=== PATIENT | female | born 1945 | race Caucasian/White ===

== ENCOUNTER 2018-05-01 06:19 | Observation (INO) | payer OTHER, BC ==
[2018-05-01 07:11] VITALS: TEMP 97.7; BMI 42.9
--- NOTE | 2018-05-01 08:30 | PDOC ---
History of Present Illness - General Chief Complaint: Rectal Bleed Stated Complaint: BLOOD IN STOOL Time Seen by Provider: 05/01/18 07:34 History Source: Patient Exam Limitations: No Limitations - History of Present Illness Initial Comments: 05/01/18 08:14 72 yo female pmh of HTN, HLD (no AC, on 81 ASA daily) hemorrhoids, last colonoscopy [address] Bucio showed diverticulosis, benign polyps along with internal/external hemorrhoids, chronic back pain (intermittently takes Advil) presents to the ED after 1 episode of BRBPR this am. Pt states she woke up at 4 am due to lower quadrant abdominal cramping, believed it was gas, attempted to pass gas but states a large amount of BRB came out while on the toilet. Pt became lightheaded and nauseated without vomiting after episode, denies abdominal pain during bowel movement, denies straining while on the toilet. Pt admits to only 1 episode of blood filling the toilet without formed stools. Denies similar episodes in the past, F/C/ vomiting, abdominal pain, Cp, SOB Past History - Past Medical History Allergies/Adverse Reactions: Allergies Allergy/AdvReac Type Severity Reaction Status Date / Time Penicillins Allergy Severe Itching Verified 05/01/18 07:06 Home Medications: Ambulatory Orders Aspirin Coated [Ecotrin -] 81 mg PO DAILY 03/13/15 Atorvastatin Calcium 10 mg PO Q2D 03/13/15 Cholecalciferol (Vitamin D3) [Vitamin D3] 2,000 unit PO DAILY 03/13/15 Glucosam/Chondroit/C/Manganese [Cosamin Ds Capsule] 1 each PO DAILY 03/13/15 Candesartan/Hydrochlorothiazid [Candesartan-Hctz 32-25 mg Tab] 1 each PO DAILY 05/02/18 Loratadine [Claritin] 10 mg PO DAILY 05/02/18 Metoprolol Succinate [Toprol Xl] 50 mg PO DAILY 05/02/18 Vitamin E 400 unit PO DAILY 05/02/18 COPD: No GI Disorders: Yes (DIVERTICULOSIS, COLON POLYPS) HTN: Yes Hypercholesterolemia: Yes Liver Disease: Yes (NAFLD) - Suicide/Smoking/Psychosocial Hx Smoking History: Former smoker Have you smoked in the past 12 months: No If you are a former smoker, when did you quit?: 40 YEARS AGO Information on smoking cessation initiated: No Hx Alcohol Use: No Drug/Substance Use Hx: No Substance Use Type: None Hx Substance Use Treatment: No Review of Systems - Review of Systems Constitutional: No: Chills, Fever Respiratory: No: Shortness of Breath Cardiac (ROS): No: Chest Pain ABD/GI: Yes: Nausea (resolved). No: Constipated, Diarrhea, Vomiting : No: Burning, Dysuria, Discharge, Frequency, Flank Pain Musculoskeletal: No: Back Pain Integumentary: No: Change in Color Neurological: Yes: Other (lightheaded resolved). No: Headache, Numbness, Weakness, Ataxia, Dizziness *Physical Exam - Vital Signs Last Vital Signs Temp Pulse Resp BP Pulse Ox 97.7 F 83 20 129/70 97 05/01/18 07:06 05/01/18 07:06 05/01/18 07:06 05/01/18 07:06 05/01/18 07:06 - Physical Exam General Appearance: Yes: Nourished, Appropriately Dressed. No: Apparent Distress HEENT: positive: EOMI. negative: Pale Conjunctivae Neck: positive: Supple. negative: Carotid bruit Respiratory/Chest: positive: Lungs Clear, Normal Breath Sounds. negative: Accessory Muscle Use Cardiovascular: positive: Regular Rhythm, Regular Rate, S1, S2. negative: Edema , JVD, Murmur Vascular Pulses: Dorsalis-Pedis (R): 4+, Doralis-Pedis (L): 4+ Gastrointestinal/Abdominal: positive: Normal Bowel Sounds, Flat, Soft. negative : Pulsatile Mass, Protuberent, Distended, Guarding, Rebound, Tenderness Rectal Exam: positive: normal rectal tone, heme positive stool, hemorrhoids, other (visualized BRB around anus). negative: melena Musculoskeletal: negative: CVA Tenderness Extremity: positive: Normal Capillary Refill, Normal Inspection Integumentary: positive: Normal Color, Dry, Warm Neurologic: positive: Fully Oriented, Alert, Normal Mood/Affect, Normal Response , Motor Strength 5/5 ED Treatment Course - LABORATORY CBC & Chemistry Diagram: 05/02/18 05:40 05/02/18 05:25 Medical Decision Making - Medical Decision Making 72 yo female pmh of HTN, HLD (no AC, on 81 ASA daily) hemorrhoids, last colonoscopy [address] Kozicky showed diverticulosis, benign polyps along with internal/external hemorrhoids, chronic back pain (intermittently takes Advil) presents to the ED after 1 episode of BRBPR this am. Pt states she woke up at 4 am due to lower quadrant abdominal cramping, believed it was gas, attempted to pass gas but states a large amount of BRB came out while on the toilet. Pt became lightheaded and nauseated without vomiting after episode, denies abdominal pain during bowel movement, denies straining while on the toilet. Pt admits to only 1 episode of blood filling the toilet without formed stools. Denies similar episodes in the past, F/C/ vomiting, abdominal pain, Cp, SOB Vitals WNL AOX3 NAD non toxic appearing DDX INLT: Diverticular bleed, colon ca, angiodysplasia, bleeding hemorrhoid Rectal shows residual BRB around the anus, external and internal hemorrhoids that are not actively bleeding and a positive stool occult Abdomen is non tender CBC shows normal h/h with elevated WBC CMP WNL trops neg EKG NSR without ST elevations or depressions GI consulted and pt will be admitted for repeat CBCs and r/o diverticular bleed Pt continues to be asymptomatic in the ED, has not had another bowel movement Pt accepted for admission *DC/Admit/Observation/Transfer Diagnosis at time of Disposition: Lower GI bleed - Discharge Dispostion Disposition: HOME Condition at time of disposition: Fair Decision to Admit order: Yes - Referrals - Patient Instructions - Post Discharge Activity
[2018-05-01] MEDS ORDERED: SODIUM CHLORIDE 500 ML IV ONE (08:37)
[2018-05-01 08:48] LABS: BASO % 0.6 % (0-2.0); EOS % 0.2 % (0-4.5); HEMATOCRIT 37.8 % (32.4-45.2); HEMOGLOBIN 13.1 GM/dL (10.7-15.3); LYMPH % 15.1 % (8-40); MCH 32.6 pg (25.7-33.7); MCHC 34.7 g/dl (32.0-36.0); MEAN CELL VOLUME 93.9 fl (80-96); MEAN PLT VOLUME 9.3 fl (7.5-11.1); MONO % 3.7 % (3.8-10.2); NEUT % 80.4 % (42.8-82.8); PLATELET COUNT 282 K/MM3 (134-434); RBC 4.02 M/mm3 (3.60-5.2); RDW 13.7 % (11.6-15.6); WHITE BLOOD COUNT 16.5 K/mm3 (4.0-10.0)
[2018-05-01 09:15] LABS: INR 1.08 (0.83-1.09); PROTHROMBIN TIME (PATIENT) 12.8 SEC (9.7-13.0)
[2018-05-01 09:18] LABS: ACTIVATED PTT 29.9 SECONDS (25.2-36.5); ALBUMIN 3.6 g/dl (3.4-5.0); ALK PHOS 62 U/L (45-117); ANION GAP 9 MMOL/L (8-16); BILIRUBIN,TOTAL 0.6 mg/dL (0.2-1); BLOOD UREA NITROGEN 19 mg/dL (7-18); CALCIUM 8.5 mg/dL (8.5-10.1); CHLORIDE 103 mmol/L (98-107); CO2 27 mmol/L (21-32); CREATININE 0.9 mg/dL (0.55-1.3); GLUCOSE,RANDOM 130 mg/dL (74-106); POTASSIUM 3.8 mmol/L (3.5-5.1); SGOT/AST 16 U/L (15-37); SGPT/ALT 27 U/L (13-61); SODIUM 139 mmol/L (136-145); TOT PROT 6.8 g/dl (6.4-8.2)
--- NOTE | 2018-05-01 10:10 | PDOC ---
Attending Attestation - Resident Resident Name: Cruzito Florez - ED Attending Attestation I have performed the following: I have examined & evaluated the patient, The case was reviewed & discussed with the resident, I agree w/resident's findings & plan - HPI HPI: 05/01/18 10:08 72-year-old female with history of diverticulosis on colonoscopy in 2016 presents with 1 large bloody bowel movement this morning. Patient was in her usual state of normal health, developed abdominal cramping followed by large loose bowel movement with gross blood, developed lightheadedness and nausea following the episode without actual syncope. No chest pain. No history of GI bleed. Takes daily aspirin, no other blood thinners. Feels well now, no abdominal pain. - Physicial Exam PE: 05/01/18 10:09 Vital signs normal Well-appearing seated in chair No jaundice or pallor Heart is regular without murmur, lungs are clear Abdomen is soft/nontender/nondistended. Guaiac positive. Neurologically intact, well-perfused distally - Medical Decision Making 05/01/18 10:09 72-year-old female with known diverticulosis presents with painless bright red blood per rectum this morning and near syncope. Presentation most consistent with diverticular bleed, hemodynamically stable here with benign abdominal exam. Labs are within normal limits, hemoglobin 13 Troponin negative, EKG without acute ischemic changes Will monitor for recurring GI bleed, trending her CBC Heart Score/ECG Review #1 ECG reviewed & interpreted by me at: 08:44 General ECG Interpretation: Sinus Rhythm, Normal Rate (89), Normal Intervals ( qtc 455), No acute ischemic changes
[2018-05-01] MEDS ORDERED: DEXTROSE 5%-NORMAL SALINE 1,000 ML IV SCH (11:15)
--- NOTE | 2018-05-01 11:26 | HP ---
CHIEF COMPLAINT: rectal bleed PCP: Dr. Carter HISTORY OF PRESENT ILLNESS: This is a 72 year old female with a history of diverticulosis, colon polyps ( removed 3years ago), HTN, HLD, osteoarthritis, external and internal hemorrhoids , who presents this Am after one episode of BRBPR. Patient states she went to the bathroom , had diarrhea, and say toilet bowl full of blood. After episode she became hot and sweaty. She denies LOC, cp, son, fever, chills, n, v, . ER: stool for occult blood +; vital and H/H stable Recent Travel: no PAST MEDICAL HISTORY: as above PAST Sx ;no Social History: Smoking:no Alcohol:no Drugs: no Family History: Allergies Penicillins Allergy (Severe, Verified 05/01/18 07:06) Itching /RASH HOME MEDICATIONS: Home Medications Medication Instructions Recorded Aspirin Coated [Ecotrin -] 81 mg PO DAILY 03/13/15 Atorvastatin Calcium 10 mg PO Q2D 03/13/15 Candesartan/Hydrochlorothiazid 1 each PO DAILY 03/13/15 [Candesartan-Hctz 16-12.5 mg Tb] Cholecalciferol (Vitamin D3) 2,000 unit PO ASDIR 03/13/15 [Vitamin D3] Glucosam/Chondroit/C/Manganese 1 each PO DAILY 03/13/15 [Cosamin Ds Capsule] REVIEW OF SYSTEMS CONSTITUTIONAL: Absent: fever, chills, diaphoresis, generalized weakness, malaise, loss of appetite, weight change HEENT: Absent: rhinorrhea, nasal congestion, throat pain, throat swelling, difficulty swallowing, mouth swelling, ear pain, eye pain, visual changes CARDIOVASCULAR: Absent: chest pain, syncope, palpitations, irregular heart rate, lightheadedness , peripheral edema RESPIRATORY: Absent: cough, shortness of breath, dyspnea with exertion, orthopnea, wheezing, stridor, hemoptysis GASTROINTESTINAL: Positive: BRBPR; diarrhea Absent: abdominal pain, abdominal distension, nausea, vomiting, constipation, melena, GENITOURINARY: Absent: dysuria, frequency, urgency, hesitancy, hematuria, flank pain, genital pain MUSCULOSKELETAL: Absent: myalgia, arthralgia, joint swelling, back pain, neck pain SKIN: Absent: rash, itching, pallor HEMATOLOGIC/IMMUNOLOGIC: Absent: easy bleeding, easy bruising, lymphadenopathy, frequent infections ENDOCRINE: Absent: unexplained weight gain, unexplained weight loss, heat intolerance, cold intolerance NEUROLOGIC: Absent: headache, focal weakness or paresthesias, dizziness, unsteady gait, seizure, mental status changes, bladder or bowel incontinence PSYCHIATRIC: Absent: anxiety, depression, suicidal or homicidal ideation, hallucinations. PHYSICAL EXAMINATION Vital Signs - 24 hr 05/01/18 05/01/18 07:06 07:11 Temperature 97.7 F Pulse Rate 83 Respiratory 20 20 Rate Blood Pressure 129/70 O2 Sat by Pulse 97 97 Oximetry (%) GENERAL: Awake, alert, and fully oriented, in no acute distress. HEAD: Normal with no signs of trauma. EYES: Pupils equal, round and reactive to light, extraocular movements intact, sclera anicteric, conjunctiva clear. No lid lag. EARS, NOSE, THROAT: Ears normal, nares patent, oropharynx clear without exudates. Moist mucous membranes. NECK: Normal range of motion, supple without lymphadenopathy, JVD, or masses. Breast: no masses; lumps LUNGS: Breath sounds equal, clear to auscultation bilaterally. No wheezes, and no crackles. No accessory muscle use. HEART: Regular rate and rhythm, normal S1 and S2, +systolic aortic stenosis murmur extending to right clavicle, rub or gallop. ABDOMEN: tight , + distended, decreased bowel sounds, no guarding, no rebound, no masses. No hepatomegaly or splenomegaly. MUSCULOSKELETAL: Normal range of motion at all joints. No bony deformities or tenderness. No CVA tenderness. UPPER EXTREMITIES: 2+ pulses, warm, well-perfused. No cyanosis. No clubbing. No peripheral edema. LOWER EXTREMITIES: 2+ pulses, warm, well-perfused. No calf tenderness. No peripheral edema. NEUROLOGICAL: Cranial nerves II-XII intact. Normal speech. Normal gait. PSYCHIATRIC: Cooperative. Good eye contact. Appropriate mood and affect. SKIN: Warm, dry, normal turgor, no rashes or lesions noted, normal capillary refill. Rectal: no active bleeding; +large external hemorrhoids; decline internal exam due to already done by ER resident Laboratory Results - last 24 hr 05/01/18 05/01/18 05/01/18 08:10 08:23 08:23 WBC 16.5 H RBC 4.02 Hgb 13.1 Hct 37.8 MCV 93.9 MCH 32.6 MCHC 34.7 RDW 13.7 Plt Count 282 MPV 9.3 Absolute Neuts (auto) 13.3 H Neutrophils % 80.4 Lymphocytes % 15.1 Monocytes % 3.7 L Eosinophils % 0.2 Basophils % 0.6 Nucleated RBC % 0 PT with INR 12.80 INR 1.08 PTT (Actin FS) 29.9 Sodium Potassium Chloride Carbon Dioxide Anion Gap BUN Creatinine Creat Clearance w eGFR Random Glucose Calcium Total Bilirubin AST ALT Alkaline Phosphatase Creatine Kinase Troponin I Total Protein Albumin Stool Occult Blood Positive Blood Type Antibody Screen 05/01/18 05/01/18 08:23 08:23 WBC RBC Hgb Hct MCV MCH MCHC RDW Plt Count MPV Absolute Neuts (auto) Neutrophils % Lymphocytes % Monocytes % Eosinophils % Basophils % Nucleated RBC % PT with INR INR PTT (Actin FS) Sodium 139 Potassium 3.8 Chloride 103 Carbon Dioxide 27 Anion Gap 9 BUN 19 H Creatinine 0.9 Creat Clearance w eGFR 61.55 Random Glucose 130 H Calcium 8.5 Total Bilirubin 0.6 AST 16 ALT 27 Alkaline Phosphatase 62 Creatine Kinase 58 Troponin I < 0.02 Total Protein 6.8 Albumin 3.6 Stool Occult Blood Blood Type AB POSITIVE Antibody Screen Negative Current Medications Generic Name Dose Route Start Last Admin Trade Name Freq PRN Reason Stop Dose Admin Atorvastatin Calcium 10 mg 05/03/18 22:00 Lipitor - PO Q2D@2200 TERESA Hydrochlorothiazide 12.5 mg 05/02/18 10:00 Hctz - PO DAILY TERESA Dextrose/Sodium Chloride 1,000 mls @ 83 mls/hr 05/01/18 11:15 05/01/18 11:20 D5-Ns - IV 05/01/18 23:18 83 mls/hr ASDIR TERESA Administration Valsartan 160 mg 05/02/18 10:00 Diovan - PO DAILY TERESA ASSESSMENT/PLAN: This is a 72 year old obese female with a history of colon polyps, diverticulosis, hTN, HLD, arthritis, who presents after one episode of diarrhea with BRBPR. #BRBPR with one episode of diarrhea: most likely bleeding from hemorrhoids; r/o diverticulitis bleed; diverticulitis -IVF ; NS 83mls/ x1 bag -H/H stable monitor; -protonix -CT abdomen and pelvis #leucocytosis: possible secondary to acute viral gastroenteritis, vs diverticulitis. -monitor cbc -monitor off antibiotics -abd/pelvis pending #HTN: controlled -cont diovan/htc #HLD: -statin q48hs as per home dose Diet : npo for now VTE ppl: scds GI ppl: protonix Disposition med surg obs Visit type - Emergency Visit Emergency Visit: Yes ED Registration Date: 05/01/18 Care time: The patient presented to the Emergency Department on the above date and was hospitalized for further evaluation of their emergent condition. - New Patient This patient is new to me today: Yes Date on this admission: 05/01/18 - Critical Care Critical Care patient: No
--- NOTE | 2018-05-01 16:59 | PN ---
Teaching Attending Note Name of Resident: Luciana Rivas ATTENDING PHYSICIAN STATEMENT I saw and evaluated the patient. I reviewed the resident's note and discussed the case with the resident. I agree with the resident's findings and plan as documented. CC: I had bleeding HPI: Ms Lloyd is a very pleasant 72 year old female who comes in with rectal bleeding. She says she has history of hemorrhoids and often sees blood when she has a bowel movement but normally it is on the toilet paper. However today she had diarrhea and noted that the toilet bowl was full of blood. She continued to sit there and as she was having further bowel movements, she became nauseous. She says she blew her nose and the nausea resolved. She says she has now stopped bleeding but came in for further evaluation. She denies fevers, chills, lightheadedness, dizziness, passing out, chest pain or pressures, shortness of breath, vomiting, difficulty or pain on urination, or swelling. Currently she says she feels fine. PMHx: HTN PSHx: none All: penicillin Meds: Home Medications Medication Instructions Recorded Aspirin Coated [Ecotrin -] 81 mg PO DAILY 03/13/15 Atorvastatin Calcium 10 mg PO Q2D 03/13/15 Candesartan/Hydrochlorothiazid 1 each PO DAILY 03/13/15 [Candesartan-Hctz 16-12.5 mg Tb] Cholecalciferol (Vitamin D3) 2,000 unit PO ASDIR 03/13/15 [Vitamin D3] Glucosam/Chondroit/C/Manganese 1 each PO DAILY 03/13/15 [Cosamin Ds Capsule] SHx: denies tobacco, alcohol, [employer] FHx: patient says all her family is alive and healthy ROS: full review of systems obtained, as per HPI and otherwise negative OBJECTIVE: Last Vital Signs Temp Pulse Resp BP Pulse Ox 36.5 C 83 20 129/70 97 05/01/18 07:06 05/01/18 07:06 05/01/18 07:11 05/01/18 07:06 05/01/18 07:11 Gen: nad, obese HEENT: perrla, eomi, mmm Pulm: ctab w/o w/r/r CV: rrr w/o m/r/g Abd: +bs, s/nt/nd Ext: no c/c/e CBC, BMP 05/01/18 08:23 05/01/18 08:23 ASSESSMENT AND PLAN: -admit under observation -suspect hemorrhoidal bleed -sees Dr Bucio in the outpatient, will consult -follow up CT A/P -cbc tonight and again in the am -gentle hydration -continue home regimen -if no further bleeding, plan for discharge in am -leukocytosis noted and will monitor but hold on antibiotics as no other signs of infection/sepsis at this time Problem List - Problems (1) HTN (hypertension) Code(s): I10 - ESSENTIAL (PRIMARY) HYPERTENSION (2) Lower GI bleed Code(s): K92.2 - GASTROINTESTINAL HEMORRHAGE, UNSPECIFIED
--- NOTE | 2018-05-01 17:05 | CON.GI ---
Consult Consult Specialty:: Gastroenterology Referred by:: Dr Muñoz Reason for Consultation:: Rectal bleeding - History of Present Illness Chief Complaint: Awoke with rectal bleeding History of Present Illness: 72F awake at 4AM with the urge to defecate and instead of passing gas expelled a large volume of various shades of blood, some bright red. She did have transient lower colicky pain but that rapidly subsided after the blood passed. She did feel nauseated and near syncopal. She has not had a BM since then. She does admit to being somewhat constipated over the past few days but has not had recent bleeding. She last had a colonoscopy with me on 03/16/15 when a serrated polyp was removed from the transverse colon. An inflammatory polyp was removed from the right colon and a hyperplastic polyp from the descending colon. Mild left colon diverticulosis was noted. She had small internal hemorrhoids and large external hemorrhoids. - History Source History Provided By: Patient Limitations to Obtaining History: No Limitations - Past Medical History Cardio/Vascular: Yes: HTN, Hyperlipdemia Gastrointestinal: Yes: Diverticulosis, Other (Colon polyps inbcludeing sessile serrated adenoma ') Hepatobiliary: Yes: Other (fatty liver) Renal/: Yes: Renal Calculi Additional Medical History: morbid obesity - Past Surgical History Past Surgical History: Yes: Colonoscopy Additional Surgical History: colposcopy. excision fatty tumor from the leg - Alcohol/Substance Use Hx Alcohol Use: Yes (occasional wine) History of Substance Use: reports: None - Smoking History Smoking history: Former smoker Have you smoked in the past 12 months: No If you are a former smoker, when did you quit?: 1978 - Social History Usual Living Arrangement: Alone () ADL: Independent Occupation: retired teacher Place of : [facility] Home Medications - Allergies Allergies/Adverse Reactions: Allergies Allergy/AdvReac Type Severity Reaction Status Date / Time Penicillins Allergy Severe Itching Verified 05/01/18 07:06 - Home Medications Home Medications: Ambulatory Orders Aspirin Coated [Ecotrin -] 81 mg PO DAILY 03/13/15 Atorvastatin Calcium 10 mg PO Q2D 03/13/15 Candesartan/Hydrochlorothiazid [Candesartan-Hctz 16-12.5 mg Tb] 1 each PO DAILY 03/13/15 Cholecalciferol (Vitamin D3) [Vitamin D3] 2,000 unit PO ASDIR 03/13/15 Glucosam/Chondroit/C/Manganese [Cosamin Ds Capsule] 1 each PO DAILY 03/13/15 Family Disease History - Family Disease History Family Disease History: Diabetes: Father, Other: Mother (CVA) Other Family History: cousin with pancreatic cancer, cousin with colon polyp Review of Systems - Review of Systems Constitutional: reports: Diaphoresis, Weakness Eyes: reports: No Symptoms HENT: reports: No Symptoms Neck: reports: No Symptoms Cardiovascular: reports: No Symptoms Respiratory: reports: No Symptoms Gastrointestinal: reports: Abdominal Pain, Constipation, Rectal Bleeding Physical Exam-GI Vital Signs: Vital Signs Temperature 97.7 F 05/01/18 07:06 Pulse Rate 83 05/01/18 07:06 Respiratory Rate 20 05/01/18 07:11 Blood Pressure 129/70 05/01/18 07:06 O2 Sat by Pulse Oximetry (%) 97 05/01/18 07:11 CBC,CMP WBC 16.5 K/mm3 (4.0-10.0) H 05/01/18 08:23 RBC 4.02 M/mm3 (3.60-5.2) 05/01/18 08:23 Hgb 13.1 GM/dL (10.7-15.3) 05/01/18 08:23 Hct 37.8 % (32.4-45.2) 05/01/18 08:23 MCV 93.9 fl (80-96) 05/01/18 08:23 MCH 32.6 pg (25.7-33.7) 05/01/18 08:23 MCHC 34.7 g/dl (32.0-36.0) 05/01/18 08:23 RDW 13.7 % (11.6-15.6) 05/01/18 08:23 Plt Count 282 K/MM3 (134-434) 05/01/18 08:23 MPV 9.3 fl (7.5-11.1) 05/01/18 08:23 Absolute Neuts (auto) 13.3 K/mm3 (1.5-8.0) H 05/01/18 08:23 Neutrophils % 80.4 % (42.8-82.8) 05/01/18 08:23 Lymphocytes % 15.1 % (8-40) 05/01/18 08:23 Monocytes % 3.7 % (3.8-10.2) L 05/01/18 08:23 Eosinophils % 0.2 % (0-4.5) 05/01/18 08:23 Basophils % 0.6 % (0-2.0) 05/01/18 08:23 Nucleated RBC % 0 % (0-0) 05/01/18 08:23 Sodium 139 mmol/L (136-145) 05/01/18 08:23 Potassium 3.8 mmol/L (3.5-5.1) 05/01/18 08:23 Chloride 103 mmol/L (98-107) 05/01/18 08:23 Carbon Dioxide 27 mmol/L (21-32) 05/01/18 08:23 Anion Gap 9 MMOL/L (8-16) 05/01/18 08:23 BUN 19 mg/dL (7-18) H 05/01/18 08:23 Creatinine 0.9 mg/dL (0.55-1.3) 05/01/18 08:23 Creat Clearance w eGFR 61.55 (>60) 05/01/18 08:23 Random Glucose 130 mg/dL (74-106) H 05/01/18 08:23 Calcium 8.5 mg/dL (8.5-10.1) 05/01/18 08:23 Total Bilirubin 0.6 mg/dL (0.2-1) 05/01/18 08:23 AST 16 U/L (15-37) 05/01/18 08:23 ALT 27 U/L (13-61) 05/01/18 08:23 Alkaline Phosphatase 62 U/L (45-117) 05/01/18 08:23 Creatine Kinase 58 U/L (26-192) 05/01/18 08:23 Troponin I < 0.02 ng/ml (0.00-0.05) 05/01/18 08:23 Total Protein 6.8 g/dl (6.4-8.2) 05/01/18 08:23 Albumin 3.6 g/dl (3.4-5.0) 05/01/18 08:23 Current Medications Generic Name Dose Route Start Last Admin Trade Name Freq PRN Reason Stop Dose Admin Atorvastatin Calcium 10 mg 05/03/18 22:00 Lipitor - PO Q2D@2200 TERESA Hydrochlorothiazide 12.5 mg 05/02/18 10:00 Hctz - PO DAILY TERESA Dextrose/Sodium Chloride 1,000 mls @ 83 mls/hr 05/01/18 11:15 05/01/18 11:20 D5-Ns - IV 05/01/18 23:18 83 mls/hr ASDIR TERESA Administration Valsartan 160 mg 05/02/18 10:00 Diovan - PO DAILY TERESA Constitutional: Yes: No Distress, Calm Eyes: Yes: Conjunctiva Clear HENT: Yes: Atraumatic Neck: Yes: Supple Cardiovascular: Yes: Regular Rate and Rhythm Respiratory: Yes: CTA Bilaterally Gastrointestinal Inspection: Yes: WNL, Distention, Other (obese) ...Auscultate: Yes: Normoactive Bowel Sounds ...Palpate: Yes: Soft, Other (nontender) ...Percussion: Yes: Tympanitic ...Rectal Exam: Yes: Guaiac Positive (no rectal mass, hemorrhoids are friable , smal amount of fresh blood present confirmed by guaiac), Hemorrhoids/External ( large extrenal hemorrhoids), Sphincter Tone Normal Labs: CBC, BMP 05/01/18 08:23 05/01/18 08:23 INR, PTT INR 1.08 (0.83-1.09) 05/01/18 08:23 Problem List - Problems (1) External bleeding hemorrhoids Assessment/Plan: The lack of subsequent bleeding and stable Hb strongly suggest a hemorrhoidal bleed but I agree with the need for observation to exclude bleeding from diverticulosis, angiodysplasias and ischemic colitis among others. If bleeding subsides can discharge with followup in the office. If it persists will undertake colonoscopy now. Code(s): K64.4 - RESIDUAL HEMORRHOIDAL SKIN TAGS (2) Serrated adenoma of colon Assessment/Plan: Given the serrated adenoma I have informed Shama that she is due for a repeat surveillance colonoscopy which can be done as an outpatient if the bleeding subsides Code(s): D12.6 - BENIGN NEOPLASM OF COLON, UNSPECIFIED (3) Diverticulosis Code(s): K57.90 - DVRTCLOS OF INTEST, PART UNSP, W/O PERF OR ABSCESS W/O BLEED (4) Colon polyps Code(s): K63.5 - POLYP OF COLON (5) Morbid (severe) obesity due to excess calories Code(s): E66.01 - MORBID (SEVERE) OBESITY DUE TO EXCESS CALORIES (6) Hyperlipidemia Code(s): E78.5 - HYPERLIPIDEMIA, UNSPECIFIED (7) Nephrolithiasis Code(s): N20.0 - CALCULUS OF KIDNEY (8) Lower GI bleed Code(s): K92.2 - GASTROINTESTINAL HEMORRHAGE, UNSPECIFIED Assessment/Plan Impression: The lack of subsequent bleeding and stable Hb strongly suggest a hemorrhoidal bleed but I agree with the need for observation to exclude bleeding from diverticulosis, angiodysplasias and ischemic colitis among others. History of serrated adenoma NAFLD Diverticulosis Morbid obesity Plan: Observe for rebleeding. Repeat CBC if this ensues If bleeding subsides can discharge with followup in the office. If it persists will undertake colonoscopy now. I have informed Shama that she is due for a repeat surveillance colonoscopy which can be done as an outpatient if the bleeding subsides Will get Fibroscan when she follows up in the office.
--- NOTE | 2018-05-01 22:01 | EKG ---
Test Reason : Blood Pressure : / mmHG Vent. Rate : 089 BPM Atrial Rate : 089 BPM P-R Int : 176 ms QRS Dur : 084 ms QT Int : 374 ms P-R-T Axes : 035 -27 -01 degrees QTc Int : 455 ms NORMAL SINUS RHYTHM NONSPECIFIC ST ABNORMALITY ABNORMAL ECG WHEN COMPARED WITH ECG OF 22-DEC-2008 08:52, INVERTED T WAVES HAVE REPLACED NONSPECIFIC T WAVE ABNORMALITY IN INFERIOR LEADS Confirmed by MD EVON, IRMA ([id number]) on 05/01/2018 10:00:30 PM Referred By: Confirmed By:IRMA BARNARD MD
[2018-05-02 05:49] LABS: BASO % 1.4 % (0-2.0); EOS % 1.1 % (0-4.5); HEMATOCRIT 31.3 % (32.4-45.2); LYMPH % 27.9 % (8-40); MCH 32.5 pg (25.7-33.7); MCHC 35.3 g/dl (32.0-36.0); MEAN CELL VOLUME 92.1 fl (80-96); MEAN PLT VOLUME 8.8 fl (7.5-11.1); MONO % 7.5 % (3.8-10.2); NEUT % 62.1 % (42.8-82.8); PLATELET COUNT 201 K/MM3 (134-434); RBC 3.39 M/mm3 (3.60-5.2); RDW 13.6 % (11.6-15.6); WHITE BLOOD COUNT 11.5 K/mm3 (4.0-10.0)
[2018-05-02 06:04] LABS: INR 1.16 (0.83-1.09); PROTHROMBIN TIME (PATIENT) 13.7 SEC (9.7-13.0)
[2018-05-02 06:06] LABS: ACTIVATED PTT 27.4 SECONDS (25.2-36.5)
[2018-05-02 06:12] LABS: ANION GAP 6 MMOL/L (8-16); BLOOD UREA NITROGEN 18 mg/dL (7-18); CALCIUM 8.4 mg/dL (8.5-10.1); CHLORIDE 106 mmol/L (98-107); CO2 27 mmol/L (21-32); CREATININE 0.7 mg/dL (0.55-1.3); GLUCOSE,RANDOM 115 mg/dL (74-106); PHOSPHOROUS 2.9 mg/dL (2.5-4.9); POTASSIUM 3.5 mmol/L (3.5-5.1); SODIUM 139 mmol/L (136-145)
[2018-05-02] MEDS ORDERED: VALSARTAN 160 MG TABLET (UD) PO SCH (10:00)
[2018-05-02] MEDS ORDERED: PATIENT'S OWN MEDICATION (NON-FORMULARY) (Candesartan/Hydrochlorothiazid [Candesartan-Hctz PO SCH (10:00)
[2018-05-02] MEDS ORDERED: HYDROCHLOROTHIAZIDE 12.5 MG CAPSULE (FP) PO SCH (10:00)
[2018-05-02 11:00] VITALS: BP 141/70; PULSE 93
--- NOTE | 2018-05-02 11:05 | DS ---
Physical Exam: SUBJECTIVE: Patient seen and examined; no complaints; no episodes of bleeding. CT negative OBJECTIVE: Vital Signs Period Temp Pulse Resp BP Sys/Padilla Pulse Ox Last 24 Hr 97.7 F-97.7 F 93-121 18-20 103-146/66-117 95 PHYSICAL EXAM GENERAL: The patient is awake, alert, and fully oriented, in no acute distress. LUNGS: Breath sounds equal, clear to auscultation bilaterally, no wheezes, no crackles, no accessory muscle use. HEART: Regular rate and rhythm, S1, S2 without murmur, rub or gallop. ABDOMEN: Soft, nontender, nondistended, normoactive bowel sounds, no guarding, no rebound, no hepatosplenomegaly, no masses. EXTREMITIES: 2+ pulses, warm, well-perfused, no edema. NEUROLOGICAL: Cranial nerves II through XII grossly intact. Normal speech, gait not observed. LABS Laboratory Results - last 24 hr 05/02/18 05/02/18 05/02/18 05:25 05:25 05:40 WBC 11.5 H RBC 3.39 L Hgb 11.0 Hct 31.3 L D MCV 92.1 MCH 32.5 MCHC 35.3 RDW 13.6 Plt Count 201 D MPV 8.8 Absolute Neuts (auto) 7.1 Neutrophils % 62.1 D Lymphocytes % 27.9 D Monocytes % 7.5 D Eosinophils % 1.1 D Basophils % 1.4 Nucleated RBC % 0 Retic Count PT with INR INR PTT (Actin FS) Sodium 139 Potassium 3.5 Chloride 106 Carbon Dioxide 27 Anion Gap 6 L BUN 18 Creatinine 0.7 Creat Clearance w eGFR 82.25 Random Glucose 115 H Calcium 8.4 L Phosphorus 2.9 Magnesium 2.0 Ferritin 39.0 05/02/18 05/02/18 05:40 05:40 WBC RBC Hgb Hct MCV MCH MCHC RDW Plt Count MPV Absolute Neuts (auto) Neutrophils % Lymphocytes % Monocytes % Eosinophils % Basophils % Nucleated RBC % Retic Count 2.65 H PT with INR 13.70 H INR 1.16 H PTT (Actin FS) 27.4 Sodium Potassium Chloride Carbon Dioxide Anion Gap BUN Creatinine Creat Clearance w eGFR Random Glucose Calcium Phosphorus Magnesium Ferritin HOSPITAL COURSE: Date of Admission:05/01/18 Date of Discharge: 05/02/18 This is a 72 year old female with a history of diverticulosis, colon polyps ( removed 3years ago), HTN, HLD, osteoarthritis, external and internal hemorrhoids , who presents after one episode of BRBPR. She was observed in hospital for bleeding and monitor cbc. NO bleeding while here, cbc stable. CT abdomen negative for acute pathology. Bleeding was secondary to external and internal hemorrhoids. She was evaluated by gastroenterology and will follow up with DR. Bucio as an outpatient. Minutes to complete discharge: 35 Discharge Summary Reason For Visit: LOWER GI HEMORRHAGE Current Active Problems Colon polyps (Acute) Diverticulosis (Acute) External bleeding hemorrhoids (Acute) HTN (hypertension) (Acute) Hyperlipidemia (Acute) Lower GI bleed (Acute) Morbid (severe) obesity due to excess calories (Acute) Nephrolithiasis (Acute) Serrated adenoma of colon (Acute) Condition: Fair - Instructions Diet, Activity, Other Instructions: Ms. Lloyd, you have been evaluated for an episode of blood in your stool. This was most likely due to your hemorrhoids. Your abdominal CT was negative. Please maintain a well balanced diet with fruit and vegetables and fiber. Regular exercise is recommended. Keep your bowel movements regular as hemorrhoids have a tendency to bleed easily. Please follow up with your enrollment clerk for screening colonoscopies and hemorroids. If you experience any worsening of symptoms including overt blood loss, lightheadedness, chest pain, shortness of breath, please return to to the emergency room. Referrals: Lola Bucio MD [Staff Physician] - Disposition: HOME - Home Medications Comprehensive Discharge Medication List: Ambulatory Orders Aspirin Coated [Ecotrin -] 81 mg PO DAILY 03/13/15 Atorvastatin Calcium 10 mg PO Q2D 03/13/15 Cholecalciferol (Vitamin D3) [Vitamin D3] 2,000 unit PO DAILY 03/13/15 Glucosam/Chondroit/C/Manganese [Cosamin Ds Capsule] 1 each PO DAILY 03/13/15 Candesartan/Hydrochlorothiazid [Candesartan-Hctz 32-25 mg Tab] 1 each PO DAILY 05/02/18 Loratadine [Claritin] 10 mg PO DAILY 05/02/18 Metoprolol Succinate [Toprol Xl] 50 mg PO DAILY 05/02/18 Vitamin E 400 unit PO DAILY 05/02/18 This patient is new to me today: Yes Date on this admission: 05/02/18 Emergency Visit: Yes ED Registration Date: 05/01/18 Care time: The patient presented to the Emergency Department on the above date and was hospitalized for further evaluation of their emergent condition. Critical Care patient: No - Discharge Referral Referred to [facility] No
--- NOTE | 2018-05-02 11:12 | PN ---
Teaching Attending Note Name of Resident: Luciana Rivas ATTENDING PHYSICIAN STATEMENT I saw and evaluated the patient. I reviewed the resident's note and discussed the case with the resident. I agree with the resident's findings and plan as documented with exceptions below. SUBJECTIVE: Patient seen and examined, no further bleeding. No abdominal pain, tolerating diet well. Eager to go home. OBJECTIVE: Vital Signs Period Temp Pulse Resp BP Sys/Padilla Pulse Ox Last 24 Hr 97.7 F-97.7 F 93-121 18-20 103-146/66-117 95 Intake & Output 04/29/18 04/30/18 05/01/18 05/02/18 23:59 23:59 23:59 23:59 Weight 250 lb General: sitting in bed in no acute distress Chest: CTAB, no rales or wheezing Abdomen: soft, Obese, NT throughout, positive bowel sounds Extremities: no edema Home Medications Medication Instructions Recorded Aspirin Coated [Ecotrin -] 81 mg PO DAILY 03/13/15 Atorvastatin Calcium 10 mg PO Q2D 03/13/15 Cholecalciferol (Vitamin D3) 2,000 unit PO DAILY 03/13/15 [Vitamin D3] Glucosam/Chondroit/C/Manganese 1 each PO DAILY 03/13/15 [Cosamin Ds Capsule] Candesartan/Hydrochlorothiazid 1 each PO DAILY 05/02/18 [Candesartan-Hctz 32-25 mg Tab] Loratadine [Claritin] 10 mg PO DAILY 05/02/18 Metoprolol Succinate [Toprol Xl] 50 mg PO DAILY 05/02/18 Vitamin E 400 unit PO DAILY 05/02/18 Laboratory Results - last 24 hr 05/02/18 05/02/18 05/02/18 05:25 05:25 05:40 WBC 11.5 H RBC 3.39 L Hgb 11.0 Hct 31.3 L D MCV 92.1 MCH 32.5 MCHC 35.3 RDW 13.6 Plt Count 201 D MPV 8.8 Absolute Neuts (auto) 7.1 Neutrophils % 62.1 D Lymphocytes % 27.9 D Monocytes % 7.5 D Eosinophils % 1.1 D Basophils % 1.4 Nucleated RBC % 0 Retic Count PT with INR INR PTT (Actin FS) Sodium 139 Potassium 3.5 Chloride 106 Carbon Dioxide 27 Anion Gap 6 L BUN 18 Creatinine 0.7 Creat Clearance w eGFR 82.25 Random Glucose 115 H Calcium 8.4 L Phosphorus 2.9 Magnesium 2.0 Ferritin 39.0 05/02/18 05/02/18 05:40 05:40 WBC RBC Hgb Hct MCV MCH MCHC RDW Plt Count MPV Absolute Neuts (auto) Neutrophils % Lymphocytes % Monocytes % Eosinophils % Basophils % Nucleated RBC % Retic Count 2.65 H PT with INR 13.70 H INR 1.16 H PTT (Actin FS) 27.4 Sodium Potassium Chloride Carbon Dioxide Anion Gap BUN Creatinine Creat Clearance w eGFR Random Glucose Calcium Phosphorus Magnesium Ferritin ASSESSMENT AND PLAN: 72 yof with PMHx of diverticulosis, colon polyps (removed 3years ago), HTN, HLD , osteoarthritis, external and internal hemorrhoids admitted with hematochezia. -Acute lower gastrointestinal haemorrhage, suspect haemorrhoidal bleed -HTN -Diverticulosis -Colonic polyps -HLD -Osteoarthritis Plan: no further evidence of bleed. CT A/P non concerning. Tolerating diet, hemodynamcis stable. D/c home today with outpatient CBC monitoring and GI follow up. Plan discussed with patient in detail, all questions answered.
[2018-05-03 04:13] LABS: SERUM IRON SATURATION 37 % (15-55); TOTAL IRON BINDING CAPACITY 287 ug/dL (250-450); UIBC 181 ug/dL (118-369)
[2018-05-03] MEDS ORDERED: ATORVASTATIN CA 10 MG TABLET (FP) PO SCH (22:00)
== END 2018-05-02 11:25 | disposition home or self-care (01) ==
LOC: JER 06:19 → JERBED 10:20 → INTOOBSV 10:20
PROVIDERS: ADMIT Internal Medicine; ATTEND Hospitalist
PROC: 3E0337Z Introduction of Electrolytic and Water Balance Substance into Peripheral Vein, Percutaneous Approach (ICD-10-PCS; principal; 2018-05-01)
DX: K92.2 Gastrointestinal hemorrhage, unspecified (principal); D72.829 Elevated white blood cell count, unspecified; D12.6 Benign neoplasm of colon, unspecified; N20.0 Calculus of kidney; K57.30 Diverticulosis of large intestine without perforation or abscess without bleeding; I10 Essential (primary) hypertension; E78.5 Hyperlipidemia, unspecified; M54.5 Low back pain; G89.29 Other chronic pain; Z79.82 Long term (current) use of aspirin; Z88.0 Allergy status to penicillin; Z87.891 Personal history of nicotine dependence; K64.4 Residual hemorrhoidal skin tags; E66.01 Morbid (severe) obesity due to excess calories; Z68.41 Body mass index [BMI] 40.0-44.9, adult
CPT/HCPCS: 36415; 74177-TC; 80048; 80053; 82272; 82550; 82728; 83540; 83550; 83735; 84100; 84484; 85025; 85044; 85610; 85730; 86850; 86900; 86901; 93005; 93010; 96360; 99284-25; G0378

== ENCOUNTER 2018-08-15 07:51 | Day surgery (SDC) | payer OTHER, BC ==
[2018-08-14 15:53] VITALS: BMI 44.6
[2018-08-15 10:14] VITALS: TEMP 97.4
[2018-08-15 11:18] VITALS: BP 132/52; PULSE 78
--- NOTE | 2018-08-16 17:29 | PATH ---
Surgical Pathology Report Patient Name: CHUNG VALDES [facility]. Rec. #: [id number] /Age/Gender: 1945 (Age: 72) / F Account: [id number] Location: U-ENDOSCOPY Taken: 08/15/2018 Received: 08/15/2018 Reported: 08/16/2018 Physicians: Lola Bucio M.D. Specimen(s) Received A: HEPATIC FLEXURE B: POLYPS ASCENDING COLON C: POLYP DESCENDING COLON Clinical History Rectal bleeding, history of serrated polyp Postoperative diagnosis: Diverticulosis, colon polyp Final Diagnosis A. COLON, HEPATIC FLEXURE, POLYP, POLYPECTOMY: SESSILE SERRATED POLYP. B. ASCENDING COLON, POLYP, BIOPSY: SESSILE SERRATED POLYP. C. DESCENDING COLON, POLYPS, POLYPECTOMY: HYPERPLASTIC POLYP(S). Electronically Signed Joselyn Lewis M.D. Gross Description A. Received in formalin, labeled "polyp hepatic flexure" is a deras, polypoid portion of soft tissue measuring 0.6 cm. in greatest dimension. The specimen is submitted in toto in one cassette. B. Received in formalin, labeled "biopsy ascending colon polyp" is a deras, irregular portion of soft tissue measuring 0.4 cm. in greatest dimension. The specimen is submitted in toto in one cassette. C. Received in formalin, labeled "polyps descending colon" are 3 deras, irregular portions of soft tissue ranging from 0.2-0.6 cm. in greatest dimension. The specimens are submitted in toto in one cassette. DL/08/15/2018 saudi/08/15/2018
== END 2018-08-15 11:15 | disposition home or self-care (01) ==
LOC: JASU-ENDO 07:51
PROVIDERS: ATTEND Internal Medicine Gastroenterology
PROC: 0DBL8ZX Excision of Transverse Colon, Via Natural or Artificial Opening Endoscopic, Diagnostic (ICD-10-PCS; 2018-08-15)
PROC: 0DBK8ZX Excision of Ascending Colon, Via Natural or Artificial Opening Endoscopic, Diagnostic (ICD-10-PCS; 2018-08-15)
PROC: 0DBM8ZX Excision of Descending Colon, Via Natural or Artificial Opening Endoscopic, Diagnostic (ICD-10-PCS; principal; 2018-08-15 08:45)
DX: K64.8 Other hemorrhoids (principal); D12.2 Benign neoplasm of ascending colon; D12.4 Benign neoplasm of descending colon; D12.3 Benign neoplasm of transverse colon; K57.30 Diverticulosis of large intestine without perforation or abscess without bleeding; K63.89 Other specified diseases of intestine
CPT/HCPCS: 88305-TC

== ENCOUNTER 2021-06-29 20:49 | Inpatient (IN) | payer OTHER, BC ==
[2021-06-29 21:03] VITALS: BMI 45.4
[2021-06-29] MEDS ORDERED: SODIUM CHLORIDE 1,000 ML IV STA (22:13)
[2021-06-29] MEDS ORDERED: ACETAMINOPHEN 1000 MG/100 ML BAG IVPB ONE (22:56)
[2021-06-29] MEDS ORDERED: ACETAMINOPHEN INJECTION 100 ML IVPB ONE (23:11)
[2021-06-29 23:17] LABS: HEMATOCRIT 39.2 % (32.4-45.2); HEMOGLOBIN 13.1 GM/dL (10.7-15.3); LYMPH % 12.5 % (8-40); MCH 30.6 pg (25.7-33.7); MCHC 33.3 g/dl (32.0-36.0); MEAN CELL VOLUME 91.9 fl (80-96); MEAN PLT VOLUME 9.5 fl (7.5-11.1); MONO % 4.8 % (3.8-10.2); NEUT % 81.9 % (42.8-82.8); PLATELET COUNT 299 10^3/uL (134-434); RBC 4.27 M/mm3 (3.60-5.2); RDW 13.9 % (11.6-15.6); WHITE BLOOD COUNT 18.1 K/mm3 (4.0-10.0)
[2021-06-29 23:18] LABS: BASO % 0.8 % (0-2.0); EPI CELLS >36 /uL (0-25.1); HYALINE CASTS 8 /uL (0-3.1); PH,URINE 5.5 (5.0-8.0); URINE APPEARANCE CLOUDY; URINE BACTERIA 3127 /uL (0-1359); URINE BILIRUBIN NEGATIVE (NEGATIVE); URINE COLOR YELLOW; URINE GLUCOSE (UA) NEGATIVE (NEGATIVE); URINE KETONE TRACE (NEGATIVE); URINE LEUK ESTERASE 1+ (NEGATIVE); URINE NITRITE NEGATIVE (NEGATIVE); URINE PROTEIN TRACE (NEGATIVE); URINE RBC 530 /uL (0-23.9); URINE UROBILINOGEN 0.2 mg/dL (0.2-1.0); URINE WBC 163 /uL (0-25.8)
[2021-06-29 23:32] LABS: CALCIUM 9.3 mg/dL (8.5-10.1)
[2021-06-29 23:33] LABS: ACTIVATED PTT 31.2 SECONDS (25.2-36.5); ALBUMIN 3.5 g/dl (3.4-5.0); BLOOD UREA NITROGEN 18.9 mg/dL (7-18); INR 1.17 (0.83-1.09); PROTHROMBIN TIME (PATIENT) 13.5 SEC (9.7-13.0)
[2021-06-29 23:36] LABS: CREATININE 1.5 mg/dL (0.55-1.3)
[2021-06-29 23:37] LABS: LACTIC ACID 5.1 mmol/L (0.4-2.0)
[2021-06-30] MEDS ORDERED: CEFTRIAXONE 1,000 MG in DEXTROSE 5%-WATER - 50 ML IVPB ONE (00:19)
[2021-06-30] MEDS ORDERED: SODIUM CHLORIDE 1,000 ML IV STA (00:21)
[2021-06-30] MEDS ORDERED: CEFTRIAXONE 1 GM/50 ML BAG ONE (00:23)
[2021-06-30] MEDS: SODIUM CHLORIDE 1,000 ML IV SCH ×2 (05:09→18:05)
[2021-06-30 07:50] LABS: BASO % 1.2 % (0-2.0); EOS % 0.6 % (0-4.5); HEMATOCRIT 33.4 % (32.4-45.2); HEMOGLOBIN 11.7 GM/dL (10.7-15.3); LYMPH % 26.1 % (8-40); MCH 32.1 pg (25.7-33.7); MCHC 34.9 g/dl (32.0-36.0); MEAN CELL VOLUME 91.9 fl (80-96); MEAN PLT VOLUME 9.1 fl (7.5-11.1); MONO % 8.2 % (3.8-10.2); NEUT % 63.9 % (42.8-82.8); PLATELET COUNT 207 10^3/uL (134-434); RBC 3.63 M/mm3 (3.60-5.2); RDW 13.7 % (11.6-15.6); WHITE BLOOD COUNT 13.2 K/mm3 (4.0-10.0)
[2021-06-30 08:15] LABS: BLOOD UREA NITROGEN 17.7 mg/dL (7-18); CALCIUM 8.5 mg/dL (8.5-10.1)
[2021-06-30 08:18] LABS: CREATININE 0.9 mg/dL (0.55-1.3); PHOSPHOROUS 2.8 mg/dL (2.5-4.9)
[2021-06-30 08:20] LABS: BILIRUBIN,TOTAL 0.9 mg/dL (0.2-1); TOT PROT 5.8 g/dl (6.4-8.2)
[2021-06-30] MEDS ORDERED: POTASSIUM CHLORIDE TABS 20 MEQ TABLET.ER (FP) PO ONE (15:52)
[2021-06-30] MEDS: ACETAMINOPHEN 325 MG TABLET (FP) PO PRN ×2 (16:04→22:10)
[2021-06-30] MEDS: HEPARIN NA (PORCINE) 5,000 UNITS/ML 1ML VIAL SQ SCH ×2 (16:11→22:08)
[2021-06-30] MEDS ORDERED: ATORVASTATIN CA 10 MG TABLET (FP) PO SCH (22:00)
[2021-07-01] MEDS: SODIUM CHLORIDE 1,000 ML IV SCH (05:03)
[2021-07-01] MEDS: HEPARIN NA (PORCINE) 5,000 UNITS/ML 1ML VIAL SQ SCH (05:04)
[2021-07-01 10:21] VITALS: BP 144/88; PULSE 79; TEMP 97.9
== END 2021-07-01 13:40 | disposition home or self-care (01) | DRG 690 ==
LOC: JER 20:49 → JERBED 06-30 01:38 → J7W 06-30 08:26
PROVIDERS: ADMIT Internal Medicine; ATTEND Nurse Practitioner Family
DX: N13.6 Pyonephrosis (principal); Z68.41 Body mass index [BMI] 40.0-44.9, adult; N17.9 Acute kidney failure, unspecified; I10 Essential (primary) hypertension; E78.5 Hyperlipidemia, unspecified; R73.03 Prediabetes; K76.0 Fatty (change of) liver, not elsewhere classified; R91.1 Solitary pulmonary nodule; E66.01 Morbid (severe) obesity due to excess calories; R16.0 Hepatomegaly, not elsewhere classified; R91.8 Other nonspecific abnormal finding of lung field; N28.1 Cyst of kidney, acquired; K64.4 Residual hemorrhoidal skin tags; R79.89 Other specified abnormal findings of blood chemistry; K64.8 Other hemorrhoids; K57.90 Diverticulosis of intestine, part unspecified, without perforation or abscess without bleeding; Z88.0 Allergy status to penicillin
CPT/HCPCS: 36415; 71250-TC; 74176-TC; 76705-TC; 76775-TC; 80053; 81003; 83036; 83605; 83690; 83735; 84100; 84484; 85025; 85610; 85730; 86850; 86900; 86901; 87086; 93005; 93010; 99285-25; C9803-CS; J1644; U0003; U0005

== ENCOUNTER 2021-09-27 04:05 | Day surgery (SDC) | payer OTHER, BC ==
[2021-09-22 11:57] VITALS: BMI 46.3
[2021-09-27] MEDS ORDERED: MIDAZOLAM HCL 2 MG/2 ML SINGLE DOSE VIAL ONE (08:20)
[2021-09-27 09:38] VITALS: RESP 18
[2021-09-27 10:00] VITALS: BP 108/58; PULSE 70; TEMP 97
[2021-09-27] MEDS ORDERED: ONDANSETRON 4 MG/2 ML VIAL IVPUSH PRN (11:03)
[2021-09-27] MEDS ORDERED: oxyCODONE HCL 5 MG TABLET PO PRN (11:03)
[2021-09-27] MEDS ORDERED: ACETAMINOPHEN 500 MG TABLET (FP) PO PRN (11:03)
[2021-09-27] MEDS ORDERED: LACTATED RINGERS SOLUTION 1,000 ML IV SCH (11:15)
== END 2021-09-27 10:14 | disposition home or self-care (01) ==
LOC: JASU-SURG 04:05
PROVIDERS: ATTEND Urology
PROC: 0TF3XZZ Fragmentation in Right Kidney Pelvis, External Approach (ICD-10-PCS; principal; 2021-09-27 08:56)
DX: N20.0 Calculus of kidney (principal)

== ENCOUNTER 2022-06-10 04:15 | Day surgery (SDC) | payer OTHER, BC ==
[2022-06-09 12:49] VITALS: BMI 44.2
[2022-06-10 08:29] VITALS: TEMP 98
[2022-06-10 10:15] VITALS: BP 150/70; PULSE 78; RESP 19
== END 2022-06-10 10:15 | disposition home or self-care (01) ==
LOC: JASU-ENDO 04:15
PROVIDERS: ATTEND Internal Medicine Gastroenterology
PROC: 0DBP8ZX Excision of Rectum, Via Natural or Artificial Opening Endoscopic, Diagnostic (ICD-10-PCS; principal; 2022-06-10 09:00)
DX: Z12.11 Encounter for screening for malignant neoplasm of colon (principal); D12.8 Benign neoplasm of rectum; K64.8 Other hemorrhoids; K57.30 Diverticulosis of large intestine without perforation or abscess without bleeding; Z86.010 Personal history of colon polyps; I10 Essential (primary) hypertension
CPT/HCPCS: 88305-TC

== ENCOUNTER 2023-08-14 04:36 | Day surgery (SDC) | payer OTHER, BC ==
[2023-08-07 09:57] VITALS: BMI 42.9
[2023-08-14 07:13] VITALS: RESP 20
[2023-08-14] MEDS ORDERED: MIDAZOLAM HCL 2 MG/2 ML SINGLE DOSE VIAL ONE (08:29)
[2023-08-14 10:39] VITALS: BP 122/80; PULSE 702; TEMP 98
== END 2023-08-14 10:20 | disposition home or self-care (01) ==
LOC: JASU-SURG 04:36
PROVIDERS: ATTEND Urology
PROC: 0TF4XZZ Fragmentation in Left Kidney Pelvis, External Approach (ICD-10-PCS; principal; 2023-08-14 09:00)
DX: N20.0 Calculus of kidney (principal)

== ENCOUNTER 2023-12-04 04:02 | Day surgery (SDC) | payer OTHER, BC ==
[2023-11-30 10:07] VITALS: BMI 42.9
[2023-12-04 06:52] VITALS: RESP 20
[2023-12-04] MEDS ORDERED: MIDAZOLAM HCL 2 MG/2 ML SINGLE DOSE VIAL ONE (08:55)
[2023-12-04] MEDS ORDERED: PROPOFOL 40 ML ONE (08:55)
[2023-12-04 09:51] VITALS: BP 120/63; PULSE 74; TEMP 97.1
== END 2023-12-04 10:41 | disposition home or self-care (01) ==
LOC: JASU-SURG 04:02
PROVIDERS: ATTEND Urology
PROC: 0TF3XZZ Fragmentation in Right Kidney Pelvis, External Approach (ICD-10-PCS; principal; 2023-12-04 08:57)
DX: N20.0 Calculus of kidney (principal)

== ENCOUNTER 2023-12-10 08:41 | Inpatient (IN) | payer OTHER, BC ==
[2023-12-10] MEDS ORDERED: KETOROLAC TROMETHAMINE 15 MG/ML VIAL ONE (09:10)
[2023-12-10] MEDS: KETOROLAC TROMETHAMINE 15 MG/ML VIAL IVPUSH ONE (09:32)
[2023-12-10 09:56] LABS: HEMATOCRIT 40.2 % (32.4-45.2); HEMOGLOBIN 13.4 G/dL (10.7-15.3); MCH 31.5 pg (25.7-33.7); MCHC 33.3 g/dl (32.0-36.0); MEAN CELL VOLUME 94.5 fl (80-96); MEAN PLT VOLUME 9.4 fl (7.5-11.1); PLATELET COUNT 224.5 10^3/uL (134-434); RBC 4.25 10^6/uL (3.60-5.2); RDW 13.5 % (11.6-15.6); WHITE BLOOD COUNT 19.2 10^3/uL (4.0-10.8)
[2023-12-10 10:01] LABS: ALBUMIN 4.1 g/dl (3.4-5.0); ALK PHOS 55 U/L (45-117); ANION GAP 9 mmol/L (4-13); BILIRUBIN,TOTAL 1.1 mg/dl (0.2-1); CALCIUM 9.5 mg/dl (8.5-10.1); CHLORIDE 99 mmol/L (98-107); CO2 28 mmol/L (21-32); CREATININE 1.2 mg/dl (0.6-1.3); GLUCOSE,RANDOM 150 mg/dl (74-106); POTASSIUM 3.8 mmol/L (3.5-5.1); SGOT/AST 16 U/L (15-37); SGPT/ALT 13 U/L (7-52); SODIUM 136 mmol/L (136-145); TOT PROT 6.7 g/dl (6.4-8.2)
[2023-12-10 10:18] LABS: PLATELET ESTIMATE ADEQUATE
[2023-12-10] MEDS ORDERED: CEFTRIAXONE 1 GM in DEXTROSE 5%-WATER - 100 ML IVPB ONE (16:00)
[2023-12-10] MEDS ORDERED: CIPROFLOXACIN 400 MG/D5W 400 MG/200 ML IVPB IVPB ONE (16:16)
[2023-12-10] MEDS ORDERED: ACETAMINOPHEN INJECTION 100 ML ONE (16:16)
[2023-12-10] MEDS: ACETAMINOPHEN 1000 MG/100 ML BAG IVPB ONE (16:26)
[2023-12-10] MEDS: CIPROFLOXACIN 400 MG/D5W 400 MG/200 ML IVPB IVPB ONE (16:27)
[2023-12-10 18:57] VITALS: BMI 44.6
[2023-12-10] MEDS ORDERED: ACETAMINOPHEN 325 MG TABLET (FP) PO PRN (22:30)
[2023-12-11] MEDS ORDERED: CIPROFLOXACIN 400 MG/D5W 400 MG/200 ML IVPB IVPB SCH ×2 (05:00)
[2023-12-11] MEDS ORDERED: ACETAMINOPHEN 325 MG TABLET (FP) PO PRN (07:27)
[2023-12-11] MEDS ORDERED: traMADol HCL 50 MG TABLET PO PRN (07:28)
[2023-12-11 08:53] LABS: CALCIUM 9.1 mg/dl (8.5-10.1); CREATININE 0.9 mg/dl (0.6-1.3); POTASSIUM 3.9 mmol/L (3.5-5.1)
[2023-12-11 11:03] LABS: EOS % 0.8 % (0-4.5); HEMATOCRIT 34.3 % (32.4-45.2); HEMOGLOBIN 11.7 GM/dL (10.7-15.3); LYMPH % 19.9 % (8-40); MCH 31.9 pg (25.7-33.7); MEAN CELL VOLUME 93.6 fl (80-96); MEAN PLT VOLUME 9.1 fl (7.5-11.1); MONO % 8.3 % (3.8-10.2); PLATELET COUNT 205 10^3/uL (134-434); RBC 3.66 M/mm3 (3.60-5.2); RDW 13.3 % (11.6-15.6)
[2023-12-11] MEDS: ATORVASTATIN CA 10 MG TABLET (FP) PO SCH (21:37)
[2023-12-11 22:22] VITALS: RESP 18
[2023-12-12 09:29] LABS: BASO % 0.9 % (0-2.0); EOS % 1.6 % (0-4.5); HEMATOCRIT 34.8 % (32.4-45.2); HEMOGLOBIN 11.7 GM/dL (10.7-15.3); LYMPH % 23.3 % (8-40); MCH 31.7 pg (25.7-33.7); MCHC 33.7 g/dl (32.0-36.0); MEAN CELL VOLUME 94.1 fl (80-96); MEAN PLT VOLUME 8.9 fl (7.5-11.1); MONO % 7.7 % (3.8-10.2); NEUT % 66.5 % (42.8-82.8); PLATELET COUNT 213 10^3/uL (134-434); RBC 3.69 M/mm3 (3.60-5.2); RDW 13.3 % (11.6-15.6); WHITE BLOOD COUNT 11.9 K/mm3 (4.0-10.0)
[2023-12-12 09:59] LABS: CALCIUM 9.1 mg/dl (8.5-10.1); CREATININE 0.9 mg/dl (0.6-1.3); POTASSIUM 3.9 mmol/L (3.5-5.1)
[2023-12-12 10:29] VITALS: BP 139/69; PULSE 80; TEMP 99
== END 2023-12-12 11:58 | disposition home or self-care (01) | DRG 690 ==
LOC: FER 08:41 → FM/S 18:17
PROVIDERS: ADMIT Internal Medicine
DX: N12 Tubulo-interstitial nephritis, not specified as acute or chronic (principal); I10 Essential (primary) hypertension; E78.5 Hyperlipidemia, unspecified
CPT/HCPCS: 0241U-QW; 36415; 74178-TC; 76700-TC; 76856-TC; 80048; 80053; 81003; 81015; 85025; 85027; 86140; 87040; 87086; 93005; 99285-25; J0131; Q9967